=== PATIENT | female | born 1955 | race African-American/Black ===

== ENCOUNTER 2021-08-03 09:59 | Emergency (ER) | payer MEDICARE, BC ==
[~2021-08-03] VITALS: Ht 157.5 cm; Wt 59.0 kg
[2021-08-03] MEDS ORDERED: MOBIC7.5 MG PO (11:22)
[2021-08-03 11:34] VITALS: BP 135/81
== END 2021-08-03 11:35 | disposition home or self-care (01) ==
LOC: ER 09:59
DX: S69.91XA Unspecified injury of right wrist, hand and finger(s), initial encounter (principal); F17.210 Nicotine dependence, cigarettes, uncomplicated; Z90.710 Acquired absence of both cervix and uterus; Z88.5 Allergy status to narcotic agent; W19.XXXA Unspecified fall, initial encounter; Y93.51 Activity, roller skating (inline) and skateboarding; Y92.89 Other specified places as the place of occurrence of the external cause; Y99.8 Other external cause status